=== PATIENT | female | born 1980 | race Caucasian/White ===

== ENCOUNTER 2019-08-24 11:52 | Inpatient (IN) | payer BC ==
[2019-08-24] MEDS ORDERED: Sodium Chloride 0.9% 10 ML Syringe FLUSH PRN (12:45)
[2019-08-24] MEDS ORDERED: Ondansetron 4 MG/2 ML SDV IVPUSH PRN ×2 (12:45→13:55)
[2019-08-24] MEDS ORDERED: Nalbuphine 10 MG/1 ML Vial IVPUSH PRN (12:45)
[2019-08-24] MEDS ORDERED: Oxytocin/Lactated Ringers 10 UNIT/1,000 ML BAG IV SCH ×2 (12:45)
[2019-08-24] MEDS ORDERED: Lactated Ringers 1,000 ML IV SCH (12:45)
--- NOTE | 2019-08-24 12:48 | PCM.LDHP ---
L&D History of Present Illness - General Date of Service: 08/24/19 Admit Problem/Dx: Patient Status Order with Admit Dx/Problem 08/24/19 12:45 Patient Status [ADT] Routine Admission Diagnosis/Problem Admission Diagnosis/Problem Normal in third trimester Source of Information: Patient History Limitations: Reports: No Limitations - History of Present Illness Introduction:: Patient is a 39 y/o at 40 2/7 wks being admitted for elective IOL. Doing well today. 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: , Spontaneous : 5 Para: 3 LMP (Approximate): - Past Surgical History HEENT Surgical History: Reports: Myringotomy w Tube(s), Tonsillectomy Female Surgical History: Reports: LEEP Social & Family History - Family History Family Medical History: Noncontributory - Tobacco Use Smoking Status *Q: Former Smoker - Caffeine Use Caffeine Use: Reports: Coffee - Alcohol Use Alcohol Use History: No - Recreational Drug Use Recreational Drug Use: No H&P Review of Systems - Review of Systems: Review Of Systems: See Below General: Reports: No Symptoms Pulmonary: Reports: No Symptoms Cardiovascular: Reports: No Symptoms Gastrointestinal: Reports: No Symptoms Genitourinary: Reports: No Symptoms Musculoskeletal: Reports: No Symptoms Neurological: Reports: No Symptoms L&D Exam - Exam Exam: See Below - Vital Signs Vital Signs: Last Vital Signs Temp 37.0 C 08/24/19 12:18 Pulse 103 H 08/24/19 12:18 Resp 18 08/24/19 12:18 BP 138/86 08/24/19 12:18 Pulse Ox 97 08/24/19 12:18 - OB Specific Contraction Intensity: Irritability Movement: Active Heart Tones: Present Heart Tones per Min: 135 Heart Rate (FHR) Variability: Moderate (6-25 bmp) Presentation: Vertex - Renteria Score Renteria Score Cervix Position: Posterior Renteria Score Consistency: Medium Renteria Score Effacement: 31-50% Renteria Score Dilation: 1-2 cm Renteria Score Infant's Station: -2 Renteria Score Total: 4 - Exam General: Alert, Oriented, Cooperative Lungs: Clear to Auscultation, Normal Respiratory Effort Cardiovascular: Regular Rate, Regular Rhythm GI/Abdominal Exam: Soft, Non-Tender Genitourinary: Normal external exam Back Exam: Normal Inspection Extremities: Normal Inspection Skin: Warm, Dry, Intact - Patient Data Result Diagrams: 08/24/19 13:06 08/24/19 13:06 - Problem List (1) Gestational diabetes, diet controlled SNOMED Code(s): 54373136, 415397293, 521165971 ICD Code: O24.410 - GESTATIONAL DIABETES MELLITUS IN , DIET CONTROLLED Status: Acute Current Visit: Yes Qualifiers: Trimester: third trimester Qualified Code(s): O24.410 - Gestational diabetes mellitus in , diet controlled (2) Post-term , 40-42 weeks of gestation SNOMED Code(s): 08764692573233 ICD Code: O48.0 - POST-TERM Status: Acute Current Visit: No Problem List Initiated/Reviewed/Updated: Yes Orders Last 24hrs: Active Orders 24 hr Category Date Time Status Patient Status [ADT] Routine ADT 08/24/19 12:45 Ordered Activity as Tolerated [RC] PFP Care 08/24/19 12:45 Ordered Blood Glucose Check, Bedside [RC] Q4HR Care 08/24/19 12:45 Ordered Communication Order [RC] ASDIRECTED Care 08/24/19 12:45 Ordered Communication Order [RC] ASDIRECTED Care 08/24/19 12:45 Ordered Communication Order [RC] ASDIRECTED Care 08/24/19 12:45 Ordered Heart Tones [RC] ASDIRECTED Care 08/24/19 12:45 Ordered Non Stress Test [RC] PER UNIT ROUTINE Care 08/24/19 12:45 Ordered Notify Provider [RC] ASDIRECTED Care 08/24/19 12:45 Ordered Notify Provider [RC] PRN Care 08/24/19 12:45 Ordered Peripheral IV Care [RC] . DIRECTED Care 08/24/19 12:45 Ordered Vaginal Exam [RC] ASDIRECTED Care 08/24/19 12:45 Ordered Vital Signs [RC] ASDIRECTED Care 08/24/19 12:45 Ordered Regular Diet [DIET] Diet 08/24/19 Lunch Ordered ALANINE AMINOTRANSFERASE,ALT [CHEM] Routine Lab 08/24/19 12:45 Ordered ASPARTATE AMNIOTRANSFERASE,AST [CHEM] Routine Lab 08/24/19 12:45 Ordered CBC W/O DIFF,HEMOGRAM [HEME] Routine Lab 08/24/19 12:45 Ordered CREATININE W/GFR [CHEM] Routine Lab 08/24/19 12:45 Ordered PROTEIN/CREATININE RATIO,URINE [URCHEM] Routine Lab 08/24/19 12:45 Ordered RAPID PLASMA REAGIN,RPR [CHEM] Routine Lab 08/24/19 12:45 Ordered TYPE AND SCREEN [BBK] Routine Lab 08/24/19 12:45 Ordered Lactated Ringers [Ringers, Lactated] 1,000 ml Med 08/24/19 12:45 Ordered IV ASDIRECTED Nalbuphine [Nubain] Med 08/24/19 12:45 Ordered 10 mg IVPUSH Q2H PRN Ondansetron [Zofran] Med 08/24/19 12:45 Ordered 4 mg IVPUSH Q4H PRN Oxytocin/Lactated Ringers [Pitocin in LR 10 Units/1,000 Med 08/24/19 12:45 Ordered ML] 10 unit in 1,000 ml IV .CONTINUOUS Oxytocin/Lactated Ringers [Pitocin in LR 10 Units/1,000 Med 08/24/19 12:45 Ordered ML] 10 unit in 1,000 ml IV TITRATE Sodium Chloride 0.9% [Saline Flush] Med 08/24/19 12:45 Ordered 10 ml FLUSH ASDIRECTED PRN Electronic Heart Tones Ext w TOCO [WOMSER] Oth 08/24/19 12:45 Ordered Routine Electronic Heart Tones Internal [WOMSER] Per Unit Oth 08/24/19 12:45 Ordered Routine Peripheral IV Insertion Adult [OM.PC] Routine Oth 08/24/19 12:45 Ordered Assessment/Plan Comment:: * Labs * blood sugars q4 for GODMA1 * GBS negative * Pitocin and AROM for induction * Pain management per patient preference * Anticipate
[2019-08-24] MEDS ORDERED: ePHEDrine 50 MG/ML SDV IVPUSH PRN (13:55)
[2019-08-24] MEDS ORDERED: fentaNYL 100 MCG/2 ML SDV EPIDUR PRN (13:55)
[2019-08-24] MEDS ORDERED: fentaNYL/Bupivacaine/NS 2 MCG-0.125% 250 ML EPIDUR PRN (13:55)
--- NOTE | 2019-08-24 13:57 | PCM.PREANE ---
Preanesthetic Assessment - Anesthesia/Transfusion/Family Hx Anesthesia History: Prior Anesthesia Without Reaction Family History of Anesthesia Reaction: No Transfusion History: No Prior Transfusion(s) Intubation History: Unknown - Review of Systems General: No Symptoms Pulmonary: No Symptoms Cardiovascular: No Symptoms Gastrointestinal: No Symptoms (GERD), Vomiting Neurological: No Symptoms Other: Reports: Diabetes (Gestational Diet controlled DM) - Physical Assessment NPO Status Date: 08/24/19 NPO Status Time: 11:00 Vital Signs: Last Vital Signs Temp 37.0 C 08/24/19 12:18 Pulse 103 H 08/24/19 12:18 Resp 18 08/24/19 12:18 BP 138/86 08/24/19 12:18 Pulse Ox 97 08/24/19 12:18 Height: 1.65 m Weight: 98.883 kg ASA Class: 2 Mental Status: Alert & Oriented x3 Airway Class: Mallampati = 2 Dentition: Reports: Normal Dentition, Caries Thyro-Mental Finger Breadths: 3 Mouth Opening Finger Breadths: 3 ROM/Head Extension: Full Lungs: Clear to Auscultation, Normal Respiratory Effort Cardiovascular: Regular Rate, Regular Rhythm, No Murmurs - Lab Values: Laboratory Last Values WBC 6.92 K/mm3 (3.98-10.04) 08/24/19 13:06 RBC 3.52 M/mm3 (3.98-5.22) L 08/24/19 13:06 Hgb 9.7 gm/dl (11.2-15.7) L 08/24/19 13:06 Hct 30.6 % (34.1-44.9) L 08/24/19 13:06 MCV 86.9 fl (79.4-94.8) 08/24/19 13:06 MCH 27.6 pg (25.6-32.2) 08/24/19 13:06 MCHC 31.7 g/dl (32.2-35.5) L 08/24/19 13:06 RDW Std Deviation 42.8 fL (36.4-46.3) 08/24/19 13:06 Plt Count 222 K/mm3 (182-369) 08/24/19 13:06 MPV 9.6 fl (9.4-12.3) 08/24/19 13:06 Creatinine 0.8 mg/dL (0.55-1.02) 08/24/19 13:06 Est Cr Clr Drug Dosing 85.80 mL/min 08/24/19 13:06 Estimated GFR (MDRD) > 60 mL/min (>60) 08/24/19 13:06 AST 12 U/L (15-37) L 08/24/19 13:06 ALT 10 U/L (14-59) L 08/24/19 13:06 Above labs reviewed and noted and within acceptable ranges to proceed with epidural if desired. - Allergies Allergies/Adverse Reactions: Allergies Allergy/AdvReac Type Severity Reaction Status Date / Time onion AdvReac Indigestion Verified 08/24/19 12:53 - Anesthesia Plan Pre-Op Medication Ordered: None - Acknowledgements Anesthesia Type Planned: Epidural Pt an Appropriate Candidate for the Planned Anesthesia: Yes Alternatives and Risks of Anesthesia Discussed w Pt/Guardian: Yes Pt/Guardian Understands and Agrees with Anesthesia Plan: Yes PreAnesthesia Questionnaire Gastrointestinal History: Reports: Hemorrhoids F[employer] RO[employer] WORKER History: Reports: , Spontaneous - Past Surgical History HEENT Surgical History: Reports: Myringotomy w Tube(s), Tonsillectomy Female Surgical History: Reports: LEEP - SUBSTANCE USE Smoking Status *Q: Former Smoker Tobacco Use Within Last Twelve Months: No Second Hand Smoke Exposure: No Recreational Drug Use History: No - HOME MEDS Home Medications: Home Meds PNV95/Ferrous Fumarate/FA [ Tablet] 1 each PO DAILY 08/22/19 [History] - CURRENT (IN HOUSE) MEDS Current Meds: Current Medications Lactated Ringer's (Ringers, Lactated) 1,000 mls @ 40 mls/hr IV ASDIRECTED YVETTE Last Admin: 08/24/19 13:22 Dose: 40 mls/hr Oxytocin/Lactated Ringer's (Pitocin In Lr 10 Units/1,000 Ml) 10 unit in 1,000 mls @ 12 mls/hr IV TITRATE YVETTE; Protocol Last Titration: 08/24/19 13:47 Dose: 4 munits/min, 24 mls/hr Oxytocin/Lactated Ringer's (Pitocin In Lr 10 Units/1,000 Ml) 10 unit in 1,000 mls @ 500 mls/hr IV .CONTINUOUS YVETTE Nalbuphine HCl (Nubain) 10 mg IVPUSH Q2H PRN PRN Reason: Pain Ondansetron HCl (Zofran) 4 mg IVPUSH Q4H PRN PRN Reason: Nausea/Vomiting Sodium Chloride (Saline Flush) 10 ml FLUSH ASDIRECTED PRN PRN Reason: Keep Vein Open
--- NOTE | 2019-08-24 20:27 | PCM.DEL ---
L & D Note - General Info Date of Service: 08/24/19 - Delivery Note Labor: Induced by ARM, Induced by Oxytocin Delivery Outcome: Livebirth Infant Delivery Method: Spontaneous Vaginal Delivery-Single Infant Delivery Mode: Spontaneous Presentation: Right Occiput Anterior (AYUSH) Nuchal Cord: Present (One loop around neck and one around foot/ankle), Reduced Anesthesia Type: None Amniotic Fluid Description: Clear Episiotomy Type: None Laceration: 1st Degree (hemostatic and so not repaired ) Placenta: Intact, Spontaneous Cord: 3 Vessels Estimated Blood Loss: 300 Resuscitation Needed: Yes [place]: Bulb Syringe, Stimulated, Warmed, [place] Used Delivery Comments (Free Text/Narrative):: Patient found to be complete and began pushing. Wither maternal pushing effort head delivered from AYUSH presentation. Nuchal cord present and reduced. With gentle downward traction shoulders and body delivered. placed on maternal abdomen. Cord clamped and cut. Cord blood obtained. Placenta allowed time to separate and expelled intact. Inspection of the perineum showed a 1st degree laceration. As hemostatic not repaired. - General Info Date of Service: 08/24/19 - Patient Data Vitals - Most Recent: Last Vital Signs Temp 37.0 C 08/24/19 12:18 Pulse 103 H 08/24/19 12:18 Resp 18 08/24/19 12:18 BP 138/86 08/24/19 12:18 Pulse Ox 97 08/24/19 12:18 Weight - Most Recent: 98.883 kg I&O - Last 24 Hours: Intake & Output 08/24/19 08/24/19 08/24/19 06:59 14:59 22:59 Intake Total 240 Balance 240 - Problem List & Annotations (1) Gestational diabetes, diet controlled SNOMED Code(s): 11363907, 046065948, 112571096 Code(s): O24.410 - GESTATIONAL DIABETES MELLITUS IN , DIET CONTROLLED Status: Acute Current Visit: Yes (2) Post-term , 40-42 weeks of gestation SNOMED Code(s): 88594760883919 Code(s): O48.0 - POST-TERM Status: Acute Current Visit: No (3) Vaginal delivery SNOMED Code(s): 406937470 Code(s): O80 - ENCOUNTER FOR FULL-TERM UNCOMPLICATED DELIVERY Status: Acute Current Visit: No - Problem List Review Problem List Initiated/Reviewed/Updated: Yes - My Orders Last 24 Hours: My Active Orders 08/24/19 12:45 Patient Status [ADT] Routine Activity as Tolerated [RC] PFP Blood Glucose Check, Bedside [RC] Q4HR Communication Order [RC] ASDIRECTED Communication Order [RC] ASDIRECTED Communication Order [RC] ASDIRECTED Heart Tones [RC] ASDIRECTED Notify Provider [RC] ASDIRECTED Notify Provider [RC] PRN Peripheral IV Care [RC] . DIRECTED Vaginal Exam [RC] ASDIRECTED Vital Signs [RC] ASDIRECTED Lactated Ringers [Ringers, Lactated] 1,000 ml IV ASDIRECTED Nalbuphine [Nubain] 10 mg IVPUSH Q2H PRN Ondansetron [Zofran] 4 mg IVPUSH Q4H PRN Oxytocin/Lactated Ringers [Pitocin in LR 10 Units/1,000 ML] 10 unit in 1,000 ml IV .CONTINUOUS Oxytocin/Lactated Ringers [Pitocin in LR 10 Units/1,000 ML] 10 unit in 1,000 ml IV TITRATE Sodium Chloride 0.9% [Saline Flush] 10 ml FLUSH ASDIRECTED PRN Electronic Heart Tones Ext w TOCO [WOMSER] Routine Electronic Heart Tones Internal [WOMSER] Per Unit Routine Peripheral IV Insertion Adult [OM.PC] Routine 08/24/19 13:06 RAPID PLASMA REAGIN,RPR [CHEM] Routine 08/24/19 Lunch Regular Diet [DIET] - Assessment Assessment:: PPD#0 from - Plan Plan:: * Routine cares * Breast feeding * Blood glucose in AM, 2hr GT at 6 weeks * Discharge home in 1-2 days
[2019-08-24] MEDS ORDERED: Acetaminophen 325 MG Tab PO PRN (21:02)
[2019-08-24] MEDS ORDERED: Benzocaine/Menthol 20%-0.5% Spray 56 GM Canister TOP PRN (21:02)
[2019-08-24] MEDS ORDERED: Witch Hazel Medicated Pads 40/Jar TOP PRN (21:02)
[2019-08-24] MEDS ORDERED: Docusate Sodium 100 MG Cap PO PRN (21:02)
[2019-08-24] MEDS: Ibuprofen 600 MG Tab PO PRN (21:30)
[2019-08-25] MEDS: Ibuprofen 600 MG Tab PO PRN ×3 (06:26→18:45)
--- NOTE | 2019-08-25 07:05 | PCM.PNPP ---
- General Info Date of Service: 08/25/19 Functional Status: Reports: Pain Controlled, Tolerating Diet, Ambulating, Urinating - Review of Systems General: Reports: No Symptoms Pulmonary: Reports: No Symptoms Cardiovascular: Reports: No Symptoms Gastrointestinal: Reports: Abdominal Pain (cramping ) Genitourinary: Reports: No Symptoms Musculoskeletal: Reports: No Symptoms - Patient Data Vital Signs - Most Recent: Last Vital Signs Temp 36.6 C 08/25/19 02:46 Pulse 65 08/25/19 02:46 Resp 16 08/25/19 02:46 BP 131/64 08/25/19 02:46 Pulse Ox 96 08/25/19 02:46 Weight - Most Recent: 98.883 kg I&O - Last 24 Hours: Intake & Output 08/24/19 08/25/19 08/25/19 22:59 06:59 14:59 Intake Total 2240 Balance 2240 Lab Results - Last 24 Hours: Laboratory Results - last 24 hr 08/24/19 08/24/19 08/24/19 Range/Units 13:06 13:06 13:06 WBC 6.92 (3.98-10.04) K/mm3 RBC 3.52 L (3.98-5.22) M/mm3 Hgb 9.7 L (11.2-15.7) gm/dl Hct 30.6 L (34.1-44.9) % MCV 86.9 (79.4-94.8) fl MCH 27.6 (25.6-32.2) pg MCHC 31.7 L (32.2-35.5) g/dl RDW Std Deviation 42.8 (36.4-46.3) fL Plt Count 222 (182-369) K/mm3 MPV 9.6 (9.4-12.3) fl Creatinine 0.8 (0.55-1.02) mg/dL Est Cr Clr Drug Dosing 85.80 mL/min Estimated GFR (MDRD) > 60 (>60) mL/min POC Glucose (70-105) mg/dL AST 12 L (15-37) U/L ALT 10 L (14-59) U/L Ur Random Creatinine (30.0-125.0) mg/dL U Random Total Protein (0.0-11.8) mg/dL Protein/Creatinin Ratio (0-149) mg/g RPR Non-reactive (NONREACTIVE) Blood Type Gel Antibody Screen 08/24/19 08/24/19 08/24/19 Range/Units 13:06 14:32 14:45 WBC (3.98-10.04) K/mm3 RBC (3.98-5.22) M/mm3 Hgb (11.2-15.7) gm/dl Hct (34.1-44.9) % MCV (79.4-94.8) fl MCH (25.6-32.2) pg MCHC (32.2-35.5) g/dl RDW Std Deviation (36.4-46.3) fL Plt Count (182-369) K/mm3 MPV (9.4-12.3) fl Creatinine (0.55-1.02) mg/dL Est Cr Clr Drug Dosing mL/min Estimated GFR (MDRD) (>60) mL/min POC Glucose 63 L (70-105) mg/dL AST (15-37) U/L ALT (14-59) U/L Ur Random Creatinine 40.4 (30.0-125.0) mg/dL U Random Total Protein 6.1 (0.0-11.8) mg/dL Protein/Creatinin Ratio 151.0 H (0-149) mg/g RPR (NONREACTIVE) Blood Type O POSITIVE Gel Antibody Screen Negative 08/24/19 08/25/19 Range/Units 19:34 04:54 WBC (3.98-10.04) K/mm3 RBC (3.98-5.22) M/mm3 Hgb (11.2-15.7) gm/dl Hct (34.1-44.9) % MCV (79.4-94.8) fl MCH (25.6-32.2) pg MCHC (32.2-35.5) g/dl RDW Std Deviation (36.4-46.3) fL Plt Count (182-369) K/mm3 MPV (9.4-12.3) fl Creatinine (0.55-1.02) mg/dL Est Cr Clr Drug Dosing mL/min Estimated GFR (MDRD) (>60) mL/min POC Glucose 79 84 (70-105) mg/dL AST (15-37) U/L ALT (14-59) U/L Ur Random Creatinine (30.0-125.0) mg/dL U Random Total Protein (0.0-11.8) mg/dL Protein/Creatinin Ratio (0-149) mg/g RPR (NONREACTIVE) Blood Type Gel Antibody Screen Med Orders - Current: Current Medications Acetaminophen (Tylenol) 650 mg PO Q4H PRN PRN Reason: mild pain or fever Benzocaine/Menthol (Dermoplast Pain Relief [place]) 0 gm TOP ASDIRECTED PRN PRN Reason: Perineal Comfort Measure Last Admin: 08/24/19 21:31 Dose: 1 applic Docusate Sodium (Colace) 100 mg PO BID PRN PRN Reason: Constipation Ibuprofen (Motrin) 600 mg PO Q6H PRN PRN Reason: Mild pain or fever Last Admin: 08/25/19 06:26 Dose: 600 mg Witch Sussy (Tucks) 1 pad TOP ASDIRECTED PRN PRN Reason: Perineal Comfort Measure Last Admin: 08/24/19 21:31 Dose: 1 applic Discontinued Medications Ephedrine Sulfate (Ephedrine Sulfate) 5 mg IVPUSH ASDIRECTED PRN PRN Reason: Hypotension Fentanyl (Sublimaze) 100 mcg EPIDUR Q3H PRN PRN Reason: Pain Fentanyl/Bupivacaine HCl (Fentanyl/Bupivacaine/Ns 2 Mcg-0.125% 250 Ml) 250 ml EPIDUR CONTINUOUS PRN PRN Reason: Pain Lactated Ringer's (Ringers, Lactated) 1,000 mls @ 40 mls/hr IV ASDIRECTED YVETTE Last Admin: 08/24/19 13:22 Dose: 40 mls/hr Oxytocin/Lactated Ringer's (Pitocin In Lr 10 Units/1,000 Ml) 10 unit in 1,000 mls @ 12 mls/hr IV TITRATE YVETTE; Protocol Last Titration: 08/24/19 19:53 Dose: 6 munits/min, 36 mls/hr Oxytocin/Lactated Ringer's (Pitocin In Lr 10 Units/1,000 Ml) 10 unit in 1,000 mls @ 500 mls/hr IV .CONTINUOUS YVETTE Nalbuphine HCl (Nubain) 10 mg IVPUSH Q2H PRN PRN Reason: Pain Last Admin: 08/24/19 19:10 Dose: 10 mg Ondansetron HCl (Zofran) 4 mg IVPUSH Q4H PRN PRN Reason: Nausea/Vomiting Ondansetron HCl (Zofran) 4 mg IVPUSH ONETIME PRN PRN Reason: Nausea/Vomiting Sodium Chloride (Saline Flush) 10 ml FLUSH ASDIRECTED PRN PRN Reason: Keep Vein Open - Interaction Disposition, : [place] in Room with Family Interaction: Holding Infant Feeding: Attempted ; Nursed Fair/Poor Support Person: - Recovery Exam Fundal Tone: Firm Fundal Level: At Umbilicus Fundal Placement: Midline Lochia Amount: Small, Moderate Lochia Color: Rubra/Red Perineum Description: Other (see below) Other Perinuem Description: 1st degree Bladder Status: Voiding - Exam General: Alert, Oriented, Cooperative GI/Abdominal Exam: Soft, Non-Tender Extremities: Normal Inspection Skin: Warm, Dry, Intact - Problem List & Annotations (1) Gestational diabetes, diet controlled SNOMED Code(s): 07820994, 112137045, 327511034 Code(s): O24.410 - GESTATIONAL DIABETES MELLITUS IN , DIET CONTROLLED Status: Acute Current Visit: Yes (2) Post-term , 40-42 weeks of gestation SNOMED Code(s): 58943030513327 Code(s): O48.0 - POST-TERM Status: Acute Current Visit: No (3) Vaginal delivery SNOMED Code(s): 722795265 Code(s): O80 - ENCOUNTER FOR FULL-TERM UNCOMPLICATED DELIVERY Status: Acute Current Visit: No - Problem List Review Problem List Initiated/Reviewed/Updated: Yes - My Orders Last 24 Hours: My Active Orders 08/24/19 12:45 Activity as Tolerated [RC] PFP Communication Order [RC] ASDIRECTED Communication Order [RC] ASDIRECTED Communication Order [RC] ASDIRECTED Heart Tones [RC] ASDIRECTED Notify Provider [RC] ASDIRECTED Notify Provider [RC] PRN Peripheral IV Care [RC] . DIRECTED Vaginal Exam [RC] ASDIRECTED Vital Signs [RC] ASDIRECTED 08/24/19 20:28 Resuscitation Status Routine 08/24/19 21:02 Activity as Tolerated [RC] PER UNIT ROUTINE Vital Signs [RC] 03,09,15,21 Acetaminophen [Tylenol] 650 mg PO Q4H PRN Benzocaine/Menthol [Dermoplast Pain Relief [place]] See Dose Instructions TOP ASDIRECTED PRN Docusate Sodium [Colace] 100 mg PO BID PRN Ibuprofen [Motrin] 600 mg PO Q6H PRN Witch Sussy [Tucks] 1 pad TOP ASDIRECTED PRN Assess Lochia [WOMSER] Per Unit Routine Assess Uterine Involution [WOMSER] Per Unit Routine Breast Pump [WOMSER] Per Unit Routine Heat Therapy [OM.PC] PRN Ice Therapy [OM.PC] Per Unit Routine Perineal Care [OM.PC] Per Unit Routine Peripheral IV Discontinue [OM.PC] Routine Sitz Bath [OM.PC] Per Unit Routine 08/24/19 Dinner Regular Diet [DIET] 08/25/19 05:00 Blood Glucose Check, Bedside [RC] ONETIME 08/25/19 21:02 Heat Therapy [OM.PC] PRN - Assessment Assessment:: PPD#1 from - Plan Plan:: * Routine cares * Breast feeding * Hx of GODMA1 - Blood glucose this AM 86, 2hr GT at 6 weeks * Discharge home tomorrow
[2019-08-26] MEDS: Ibuprofen 600 MG Tab PO PRN ×2 (01:57→10:30)
--- NOTE | 2019-08-26 06:56 | PCM.DCSUM1 ---
Discharge Summary - Discharge Data Discharge Date: 08/26/19 Discharge Disposition: Home, Self-Care 01 Condition: Good - Referral to Home Health Primary Care Physician: Jena Poon MD - Discharge Diagnosis/Problem(s) (1) Gestational diabetes, diet controlled SNOMED Code(s): 93190742, 625187465, 592542289 ICD Code: O24.410 - GESTATIONAL DIABETES MELLITUS IN , DIET CONTROLLED Status: Acute Current Visit: Yes Qualifiers: Trimester: third trimester Qualified Code(s): O24.410 - Gestational diabetes mellitus in , diet controlled (2) Post-term , 40-42 weeks of gestation SNOMED Code(s): 15414700375539 ICD Code: O48.0 - POST-TERM Status: Acute Current Visit: No - Patient Summary/Data Complications: None Consults: None Recommended Follow-up Testing/Procedures: Follow up in 3 weeks for check Hospital Course: 39 y/o at 40 2/7 wks who presented for IOL. This was done with pitocin and AROM. She made good change to complete dilation and underwent an uncomplicated . See delivery note. did well. Was discharged home on PPD#2 - Patient Instructions Diet: Regular Diet as Tolerated Activity: As Tolerated Activity, Other: Pelvic rest for 6 weeks Driving: May Drive Today Showering/Bathing: May Shower Showering/Bathing, Other: May bathe Notify Provider of: Fever, Increased Pain, Swelling and Redness, Drainage, Nausea and/or Vomiting - Discharge Plan *PRESCRIPTION DRUG MONITORING PROGRAM REVIEWED*: Not Applicable *COPY OF PRESCRIPTION DRUG MONITORING REPORT IN PATIENT OCDY: Not Applicable Home Medications: Home Meds PNV95/Ferrous Fumarate/FA [ Tablet] 1 each PO DAILY 08/22/19 [History] Docusate Sodium [Colace] 100 mg PO BID PRN cap 08/26/19 [Rx] Ibuprofen [Motrin] 600 mg PO Q6H PRN tablet 08/26/19 [Rx] Referrals: Jena Poon MD [Primary Care Provider] - (3 weeks for check ) - Discharge Summary/Plan Comment DC Time >30 min.: No - Patient Data Vitals - Most Recent: Last Vital Signs Temp 36.8 C 08/25/19 19:51 Pulse 70 08/26/19 05:09 Resp 14 08/26/19 05:09 BP 115/86 08/26/19 05:09 Pulse Ox 97 08/26/19 05:09 Weight - Most Recent: 98.883 kg I&O - Last 24 hours: Intake & Output 08/25/19 08/25/19 08/26/19 14:59 22:59 06:59 Intake Total 60 60 Balance 60 60 Med Orders - Current: Current Medications Acetaminophen (Tylenol) 650 mg PO Q4H PRN PRN Reason: mild pain or fever Benzocaine/Menthol (Dermoplast Pain Relief [place]) 0 gm TOP ASDIRECTED PRN PRN Reason: Perineal Comfort Measure Last Admin: 08/24/19 21:31 Dose: 1 applic Docusate Sodium (Colace) 100 mg PO BID PRN PRN Reason: Constipation Ibuprofen (Motrin) 600 mg PO Q6H PRN PRN Reason: Mild pain or fever Last Admin: 08/26/19 01:57 Dose: 600 mg Witch Sussy (Tucks) 1 pad TOP ASDIRECTED PRN PRN Reason: Perineal Comfort Measure Last Admin: 08/24/19 21:31 Dose: 1 applic Discontinued Medications Ephedrine Sulfate (Ephedrine Sulfate) 5 mg IVPUSH ASDIRECTED PRN PRN Reason: Hypotension Fentanyl (Sublimaze) 100 mcg EPIDUR Q3H PRN PRN Reason: Pain Fentanyl/Bupivacaine HCl (Fentanyl/Bupivacaine/Ns 2 Mcg-0.125% 250 Ml) 250 ml EPIDUR CONTINUOUS PRN PRN Reason: Pain Lactated Ringer's (Ringers, Lactated) 1,000 mls @ 40 mls/hr IV ASDIRECTED YVETTE Last Admin: 08/24/19 13:22 Dose: 40 mls/hr Oxytocin/Lactated Ringer's (Pitocin In Lr 10 Units/1,000 Ml) 10 unit in 1,000 mls @ 12 mls/hr IV TITRATE YVETTE; Protocol Last Titration: 08/24/19 19:53 Dose: 6 munits/min, 36 mls/hr Oxytocin/Lactated Ringer's (Pitocin In Lr 10 Units/1,000 Ml) 10 unit in 1,000 mls @ 500 mls/hr IV .CONTINUOUS YVETTE Nalbuphine HCl (Nubain) 10 mg IVPUSH Q2H PRN PRN Reason: Pain Last Admin: 08/24/19 19:10 Dose: 10 mg Ondansetron HCl (Zofran) 4 mg IVPUSH Q4H PRN PRN Reason: Nausea/Vomiting Ondansetron HCl (Zofran) 4 mg IVPUSH ONETIME PRN PRN Reason: Nausea/Vomiting Sodium Chloride (Saline Flush) 10 ml FLUSH ASDIRECTED PRN PRN Reason: Keep Vein Open
--- NOTE | 2019-08-26 06:56 | PCM.PNPP ---
- General Info Date of Service: 08/26/19 Functional Status: Reports: Pain Controlled, Tolerating Diet, Ambulating, Urinating - Review of Systems General: Reports: No Symptoms Pulmonary: Reports: No Symptoms Cardiovascular: Reports: No Symptoms Gastrointestinal: Reports: No Symptoms Genitourinary: Reports: No Symptoms Musculoskeletal: Reports: No Symptoms Neurological: Reports: No Symptoms - Patient Data Vital Signs - Most Recent: Last Vital Signs Temp 36.8 C 08/25/19 19:51 Pulse 70 08/26/19 05:09 Resp 14 08/26/19 05:09 BP 115/86 08/26/19 05:09 Pulse Ox 97 08/26/19 05:09 Weight - Most Recent: 98.883 kg I&O - Last 24 Hours: Intake & Output 08/25/19 08/25/19 08/26/19 14:59 22:59 06:59 Intake Total 60 60 Balance 60 60 Med Orders - Current: Current Medications Acetaminophen (Tylenol) 650 mg PO Q4H PRN PRN Reason: mild pain or fever Benzocaine/Menthol (Dermoplast Pain Relief [place]) 0 gm TOP ASDIRECTED PRN PRN Reason: Perineal Comfort Measure Last Admin: 08/24/19 21:31 Dose: 1 applic Docusate Sodium (Colace) 100 mg PO BID PRN PRN Reason: Constipation Ibuprofen (Motrin) 600 mg PO Q6H PRN PRN Reason: Mild pain or fever Last Admin: 08/26/19 01:57 Dose: 600 mg Witch Sussy (Tucks) 1 pad TOP ASDIRECTED PRN PRN Reason: Perineal Comfort Measure Last Admin: 08/24/19 21:31 Dose: 1 applic Discontinued Medications Ephedrine Sulfate (Ephedrine Sulfate) 5 mg IVPUSH ASDIRECTED PRN PRN Reason: Hypotension Fentanyl (Sublimaze) 100 mcg EPIDUR Q3H PRN PRN Reason: Pain Fentanyl/Bupivacaine HCl (Fentanyl/Bupivacaine/Ns 2 Mcg-0.125% 250 Ml) 250 ml EPIDUR CONTINUOUS PRN PRN Reason: Pain Lactated Ringer's (Ringers, Lactated) 1,000 mls @ 40 mls/hr IV ASDIRECTED YVETTE Last Admin: 08/24/19 13:22 Dose: 40 mls/hr Oxytocin/Lactated Ringer's (Pitocin In Lr 10 Units/1,000 Ml) 10 unit in 1,000 mls @ 12 mls/hr IV TITRATE YVETTE; Protocol Last Titration: 08/24/19 19:53 Dose: 6 munits/min, 36 mls/hr Oxytocin/Lactated Ringer's (Pitocin In Lr 10 Units/1,000 Ml) 10 unit in 1,000 mls @ 500 mls/hr IV .CONTINUOUS YVETTE Nalbuphine HCl (Nubain) 10 mg IVPUSH Q2H PRN PRN Reason: Pain Last Admin: 08/24/19 19:10 Dose: 10 mg Ondansetron HCl (Zofran) 4 mg IVPUSH Q4H PRN PRN Reason: Nausea/Vomiting Ondansetron HCl (Zofran) 4 mg IVPUSH ONETIME PRN PRN Reason: Nausea/Vomiting Sodium Chloride (Saline Flush) 10 ml FLUSH ASDIRECTED PRN PRN Reason: Keep Vein Open - Infant Interaction Infant Disposition, : in Room with Family Interaction: Holding Infant Feeding: Attempted ; Nursed Fair/Poor Support Person: - Recovery Exam Fundal Tone: Firm Fundal Level: 1 Fingerbreadths Below Umbilicus Fundal Placement: Midline Lochia Amount: Small Lochia Color: Rubra/Red Perineum Description: Other (see below) Other Perinuem Description: 1st degree Bladder Status: Voiding Urinary Elimination: Voided - Exam General: Alert, Oriented, Cooperative GI/Abdominal Exam: Soft, Non-Tender Extremities: Normal Inspection Skin: Warm, Dry, Intact - Problem List & Annotations (1) Gestational diabetes, diet controlled SNOMED Code(s): 27180851, 074667553, 201095331 Code(s): O24.410 - GESTATIONAL DIABETES MELLITUS IN , DIET CONTROLLED Status: Acute Current Visit: Yes Qualifiers: Trimester: third trimester Qualified Code(s): O24.410 - Gestational diabetes mellitus in , diet controlled (2) Post-term , 40-42 weeks of gestation SNOMED Code(s): 87338771343070 Code(s): O48.0 - POST-TERM Status: Acute Current Visit: No - Problem List Review Problem List Initiated/Reviewed/Updated: Yes - My Orders Last 24 Hours: My Active Orders 08/25/19 21:02 Heat Therapy [OM.PC] PRN 10/31/19 06:55 Ready for Discharge [RC] PER UNIT ROUTINE - Assessment Assessment:: PPD#2 from - Plan Plan:: * Routine cares * breast feeding * 2 hr GTT at 6 weeks * Discharge home today
[2019-08-26 08:44] VITALS: BP 135/82; PULSE 79
[2019-08-26] MEDS ORDERED: Measles, Mumps & Rubella Vaccine 0.5 ML SDV SUBCUT ONE (11:22)
== END 2019-08-26 12:22 | disposition home or self-care (01) | DRG 560 ==
LOC: JD.OB 11:52 → OBSVTOIN 20:13 → JD.OB 20:14 → JD.MS 21:21 → JD.OB 22:29
PROVIDERS: ADMIT Obstetrics & Gynecology; ATTEND Obstetrics & Gynecology
PROC: 10E0XZZ Delivery of Products of Conception, External Approach (ICD-10-PCS; principal; 2019-08-24)
PROC: 10907ZC Drainage of Amniotic Fluid, Therapeutic from Products of Conception, Via Natural or Artificial Opening (ICD-10-PCS; 2019-08-24)
PROC: 3E033VJ Introduction of Other Hormone into Peripheral Vein, Percutaneous Approach (ICD-10-PCS; 2019-08-24)
PROC: 3E0234Z Introduction of Serum, Toxoid and Vaccine into Muscle, Percutaneous Approach (ICD-10-PCS; 2019-08-25)
DX: O48.0 Post-term pregnancy (principal); O24.410 Gestational diabetes mellitus in pregnancy, diet controlled; O69.81X0 Labor and delivery complicated by cord around neck, without compression, not applicable or unspecified; O70.0 First degree perineal laceration during delivery; Z3A.40 40 weeks gestation of pregnancy; Z37.0 Single live birth; Z79.899 Other long term (current) drug therapy; Z91.018 Allergy to other foods; Z87.891 Personal history of nicotine dependence; Z23 Encounter for immunization
CPT/HCPCS: 36415; 59025; 59409; 82565; 82570; 82962; 84156; 84450; 84460; 85027; 86592; 86850; 86900; 86901; 90471; 90707; A9270-GY; J2300; J2590; J7120

== ENCOUNTER 2019-10-16 14:45 | Emergency (ER) | payer BC ==
[2019-10-16 15:03] VITALS: BP 156/105; PULSE 89
[2019-10-16] MEDS ORDERED: cefTRIAXone 1 GM Vial IM ONE (15:10)
--- NOTE | 2019-10-16 15:10 | EDM.PDOC ---
ED HPI GENERAL MEDICAL PROBLEM - General Chief Complaint: PRIOR AUTHORIZATION TECHNICIAN Problem Stated Complaint: POSS MASTITIS Time Seen by Provider: 10/16/19 15:00 Source of Information: Reports: Patient History Limitations: Reports: No Limitations - History of Present Illness INITIAL COMMENTS - FREE TEXT/NARRATIVE: Patient's unfortunate 39-year-old female who presents emergency Department today with complaint of redness to left breast and fever. Patient reports that symptoms started 3 days ago and progressively worsened. Patient reports she went to urgent care today was closed he presented emergency department for evaluation. No nausea no vomiting or cough no shortness of breath. Of note, patient is breast-feeding and is status post a vaginal delivery 7 weeks ago Left Breast Pain Score (Numeric/FACES): 7 - Related Data Allergies Allergy/AdvReac Type Severity Reaction Status Date / Time onion AdvReac Indigestion Verified 10/16/19 14:59 Home Meds: Home Meds Pnv No.95/Ferrous Fum/Folic AC [ Tablet] 1 each PO DAILY 08/22/19 [ History] Docusate Sodium [Colace] 100 mg PO BID PRN cap 08/26/19 [Rx] Ibuprofen [Motrin] 600 mg PO Q6H PRN tablet 08/26/19 [Rx] cephALEXin [Keflex] 500 mg PO QID #28 cap 10/16/19 [Rx] Past Medical History Gastrointestinal History: Reports: Hemorrhoids 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: , Spontaneous - Past Surgical History HEENT Surgical History: Reports: Myringotomy w Tube(s), Tonsillectomy Female Surgical History: Reports: LEEP Social & Family History - Family History Family Medical History: Noncontributory - Caffeine Use Caffeine Use: Reports: Coffee ED ROS GENERAL - Review of Systems Review Of Systems: See Below Constitutional: Reports: Fever, Chills Cardiovascular: Reports: Other (Redness left breast) ED EXAM, GENERAL - Physical Exam Exam: See Below Exam Limited By: No Limitations General Appearance: Alert, WD/WN, Mild Distress Throat/Mouth: Normal Inspection, Normal Lips, Normal Teeth, Normal Gums, Normal Oropharynx, Normal Voice, No Airway Compromise Head: Atraumatic, Normocephalic Neck: Normal Inspection, Supple, Non-Tender, Full Range of Motion Respiratory/Chest: No Respiratory Distress, Lungs Clear, Normal Breath Sounds, No Accessory Muscle Use, Chest Non-Tender Cardiovascular: Normal Peripheral Pulses, Regular Rate, Rhythm, Other (Patient has moderate erythema of the 9 o'clock position from the areaola on the left breast no evidence of abscess) GI/Abdominal: Normal Bowel Sounds, Soft, Non-Tender, No Organomegaly, No Distention, No Abnormal Bruit, No Mass Back Exam: Normal Inspection, Full Range of Motion, NT Extremities: Normal Inspection, Normal Range of Motion, Non-Tender, Normal Capillary Refill, No Pedal Edema Neurological: Alert Skin Exam: Warm, Dry, No Rash Course - Vital Signs Last Recorded V/S: Last Vital Signs Temp 98.4 F 10/16/19 14:59 Pulse 89 10/16/19 14:59 Resp 16 10/16/19 14:59 BP 156/105 H 10/16/19 14:59 Pulse Ox 99 10/16/19 14:59 Departure - Departure Time of Disposition: 15:09 Disposition: Home, Self-Care 01 Clinical Impression: Acute mastitis of left breast - Discharge Information Prescriptions: cephALEXin [Keflex] 500 mg PO QID #28 cap Referrals: Jena Poon MD [Primary Care Provider] - Additional Instructions: Home, rest, pump and dump until infection resolved, Tylenol for fever or pain, return as needed for any worsening condition Sepsis Event Note - Evaluation Sepsis Screening Result: No Definite Risk - Focused Exam Vital Signs: Vital Signs Temp Pulse Resp BP Pulse Ox 10/16/19 14:59 98.4 F 89 16 156/105 H 99 Date Exam was Performed: 10/16/19 Time Exam was Performed: 15:07
== END 2019-10-16 15:45 | disposition home or self-care (01) ==
LOC: JD.ED 14:45
DX: N61.0 Mastitis without abscess (principal); Z91.018 Allergy to other foods
CPT/HCPCS: 96372; 99283; J0696